=== PATIENT | male | born 1965 | race Caucasian/White ===

== ENCOUNTER 2018-10-19 09:58 | Emergency (ER) | payer MEDICAID ==
[~2018-10-19] VITALS: Ht 167.6 cm; Wt 88.0 kg
[2018-10-19 10:02] VITALS: BP 136/72; PULSE 92; RESP 20; Ht 167.6 cm; Wt 88.0 kg
[2018-10-19] MEDS ORDERED: KETOROLAC 30 MG INJ IM STA (11:30)
[2018-10-19] MEDS ORDERED: IBUP-1542 PO (11:32)
[2018-10-19] MEDS ORDERED: GABA100C14 PO (11:32)
--- NOTE | 2018-10-19 13:12 | ERD ---
ER Documentation Chief Complaint Chief Complaint Complains of pain to both arms HPI 53-year-old presents for bilateral arm pain times 3 weeks. He states that the arm pain was on the left side from the elbow down to the hands. He started developing the same pain on his right arm. He notes 10 out of 10 pain occasio emily. He states that the pain is a numbness type of pain. He has no actual weakness. 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 Tried Motrin at home with mild relief. He denies chest pain or shortness of breath. Denies abdominal pain. ROS All systems reviewed and are negative except as per history of present illness. Medications Home Meds Active Scripts Gabapentin* (Gabapentin*) 100 Mg Capsule, 100 MG PO TID PRN for PAIN, #30 CAP Prov:HARSH ELIZALDE DO 10/19/18 Ibuprofen* (Motrin*) 600 Mg Tab, 600 MG PO Q6H PRN for PAIN, #30 TAB Prov:HARSH ELIZALDE DO 10/19/18 Allergies Allergies: Coded Allergies: Penicillins (Verified Allergy, Intermediate, 10/19/18) PMhx/Soc Medical and Surgical Hx: pt denies Medical Hx, pt denies Surgical Hx Hx Alcohol Use: No Hx Substance Use: No Hx Tobacco Use: Yes Smoking Status: Current every day smoker Physical Exam Vitals Vital Signs Date Temp Pulse Resp B/P (MAP) Pulse Ox O2 O2 Flow FiO2 Time Delivery Rate 10/19/18 98.1 92 20 136/72 99 10:02 (93) Physical Exam Const: No acute distress Resp: Clear to auscultation bilaterally Cardio: Regular rate and rhythm, no murmurs, bilateral radial and dorsalis pedis pulses intact Abd: Soft, non tender, non distended. 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 There is mild tenderness palpation over the elbow area. No tenderness to palpation over the risk area. Negative Tinel sign. Neur: Awake and alert, bilateral upper and lower extremity sensation intact Psych: Normal Mood and Affect Results 24 hrs Current Medications Medications Dose Sig/Marques Start Time Status Last (Trade) Ordered Route PRN Stop Time Admin Dose Reason Admin Ketorolac 30 mg ONCE STAT 10/19/18 DC 10/19/18 Tromethamine IM 11:30 10/19/18 11:38 (Toradol) 11:31 Procedures/MDM Medical Decision Making: Differential diagnosis includes but not limited to nerve entrapment, muscle strain, ligamentous strain. Patient appeared well on physical examination, nontoxic appearing. Patient was neurovascularly intact. Patient also had 5 out of 5 muscle strength bilateral upper and lower extremities. Patient likely has a musculoskeletal pain. Patient given prescription for Motrin and gabapentin. Advise follow with primary care physician for possible referral to physical therapy. Patient advised to follow up with PCP in 1-2 days. Patient advised to return to ED for new or worsening symptoms. Patient stable on discharge from the ED. Disclaimer: Inadvertent spelling and grammatical errors are likely due to EHR/dictation software use and do not reflect on the overall quality of patient care. Also, please note that the electronic time recorded on this note does not necessarily reflect the actual time of the patient encounter. Departure Diagnosis: Primary Impression: Bilateral arm pain Condition: Fair Patient Instructions: Pain Management, Measuring Your Pain Referrals: [facility] YOU HAVE RECEIVED A MEDICAL SCREENING EXAM AND THE RESULTS INDICATE THAT YOU DO NOT HAVE A CONDITION THAT REQUIRES URGENT TREATMENT IN THE EMERGENCY DEPARTMENT. FURTHER EVALUATION AND TREATMENT OF YOUR CONDITION CAN WAIT UNTIL YOU ARE SEEN IN YOUR DOCTORS OFFICE WITHIN THE NEXT 1-2 DAYS. IT IS YOUR RESPONSIBILITY TO MAKE AN APPOINTMENT FOR FOLOW-UP CARE. IF YOU HAVE A PRIMARY DOCTOR --you should call your primary doctor and schedule an appointment IF YOU DO NOT HAVE A PRIMARY DOCTOR YOU CAN CALL OUR PHYSICIAN REFERRAL HOTLINE AT IF YOU CAN NOT AFFORD TO SEE A PHYSICIAN YOU CAN CHOSE FROM THE FOLLOWING [facility] [address] [facility] [address] [facility] [address] [facility] [address] [facility] [address]. [facility]. [address] Additional Instructions: Call your primary care doctor TOMORROW for an appointment during the next 1-2 days.See the doctor sooner or return here if your condition worsens before your appointment time. HARSH ELIZALDE DO Oct 19, 2018 13:12
== END 2018-10-19 11:44 | disposition home or self-care (01) ==
LOC: FTE 09:58
DX: M79.601 Pain in right arm (principal); F17.210 Nicotine dependence, cigarettes, uncomplicated; M79.602 Pain in left arm
CPT/HCPCS: 96372; J1885; Z7502